=== PATIENT | female | born 1940 | race African-American/Black ===

== ENCOUNTER 2024-09-12 07:58 | Outpatient (AMB) | payer OTHER, SELFPAY ==
[2024-09-12 08:17] VITALS: BP 130/78; PULSE 51; O2SAT 100; BMI 20.7
--- NOTE | 2024-09-12 08:17 | A.OFFVIS_ITS ---
Vital Signs 09/12/24 08:17 Height 5 ft 2 in Weight 113 lb BMI 20.7 BP 130/78 Blood Pressure Location Rt brachial Position Sitting Pulse 51 Pulse Source Pulse Oximeter Pulse Oximetry (%) 100 Oxygen Delivery Method Room Air Intake Visit Reasons: E-VALIDATION CONSULTANT: Migraines/Tremors Intake Note: [facility]ors Allergies morphine Allergy (Severe, Verified 09/12/24 08:19) Nausea and Vomiting oxycodone Allergy (Severe, Verified 09/12/24 08:19) Nausea and Vomiting calcitonin Allergy (Unknown, Verified 09/12/24 08:19) Unknown Medication List - Last Reconciled 09/13/24 by Roselyn Ceballos MD aspirin (Adult Low Dose Aspirin) 81 mg PO DAILY atorvastatin 40 mg PO DAILY ciclopirox 8% topical denosumab (Prolia) 60 mg subcut [id number] fluocinonide 0.05% topical gabapentin 300 mg PO lisinopril 10 mg PO DAILY meclizine 12.5 mg PO BID methimazole 5 mg PO metoprolol succinate ER mg PO DAILY primidone 50 mg PO BID umeclidinium-vilanterol 62.5-25 mcg/actuation (Anoro Ellipta) 1 inh inhalation DAILY HPI Comments Details: 83y/o female comes for further management of migraines, left occipital neuralgia and tremors she was seeing Dr. Mcguire. Migraines- more than 15 years - well controlled. Now they are are 1-2 a year. she goes to a quiet room with no light and rests. Tremors-1-2 years ago and has worsened. The tremors are in her hands- mostly with action, posture, has trouble with writing , eating and other daily activities.she is on primiodne and is not sure it is helping she was also diagnosed with occipital neuralgia on the left and has been treated. DR Shala Simon was treated her with nerve block . ( last injection was 2 years ago and she feels she needs another. In Jul 2024 she was at the ER for headaches - right side facial droop. She was admitted and CVA was ruled out.SHe was at [place]. [facility] Medical History (Updated 09/13/24 @ 12:41 by Roselyn Ceballos MD) Occipital neuralgia Essential and other specified forms of tremor History of flexible sigmoidoscopy Osteoporosis Multinodular goiter Meningioma Spinal stenosis of cervical region Migraine Ulnar nerve neuropathy HTN (hypertension) Enchondroma of humerus PVD (peripheral vascular disease) Hyperlipidemia Chronic left-sided low back pain Disc degeneration, lumbar Subclinical hyperthyroidism Allergic rhinitis Glaucoma Tobacco use Pulmonary nodules COPD (chronic obstructive pulmonary disease) Anemia Head pain Surgical History H/O eye surgery Hx of colonoscopy History of back surgery H/O angioplasty Family History Mother HTN (hypertension) Father CHF (congestive heart failure) Stroke Myocardial infarct Sister HTN (hypertension) Brother Diabetes Son Lymphoma Son Prostate CA Social History Alcohol intake: never Patient Tobacco Use Status: Current everyday Tobacco user Physical Exam Vital Signs: Last Vital Signs Pulse 51 09/12/24 08:17 BP 130/78 09/12/24 08:17 Pulse Ox 100 09/12/24 08:17 Oxygen Delivery Method Room Air 09/12/24 08:17 BMI result Body Mass Index 20.7 Const General: cooperative, healthy appearing and comfortable Nutritional Appearance: average body habitus Orientation/consciousness: patient oriented x3 Eyes Pupils: Equal, round and reactive pupils present Neuro Other: gait- mild antalgic Left occipital region tenderness General: patient oriented x3, tone normal, moves all extremities and no focal motor deficits Cranial nerves: Yes Facial sensation intact/muscles of mastication intact, Yes Equal, round and reactive pupils present, Yes Bilaterally intact EOM present, Yes Nystagmus not present, Yes Normal facial strength present, Yes Midline tongue present and Yes Symmetric palate elevation present Cognition (Neuro): normal cognition Motor exam (neuro): 5/5 motor strength present throughout and Normal motor muscle tone present throughout Deep tendon reflexes (DTR's): Right triceps reflex intensity grade: 1+, Left triceps reflex intensity grade: 1+, Rt Biceps (C5, C6): 1+, Left biceps reflex intensity grade: 1+, Right brachioradialis reflex intensity grade: 1+, Left brachioradialis reflex intensity grade: 1+, Right patellar reflex intensity grade: 1+ and Left patellar reflex intensity grade: 1+ Coordination: [id number] test normal Assessment & Plan Assessment & Plan (1) Essential and other specified forms of tremor: Code(s): G25.0 - Essential tremor; G25.2 - Other specified forms of tremor Category: Medical (2) Occipital neuralgia: Code(s): M54.81 - Occipital neuralgia Category: Medical Qualifiers: Laterality: left Qualified Code(s): M54.81 - Occipital neuralgia Plan Continue primiodne 50mg bid Info on GEORGE tehrapy given as her tremors are poolry controlled with primiodne and a beta kervin. she has no contraindications to upper limb stimulator therapy * pt has no contraindications to external upper limb tremor stimulator therapy * external upper limb tremor stimulator is being prescribed to treat the beneficiary's dominant upper limb * If medically appropriate, tremor exacerbating medications have been reduced or eliminated * at least 2 pharmacological treatment options for management of ET symptoms have been tried and failed or considered and ruled out- primiodne and gabapentin -not sufficient response * external upper limb tremor stimulator therapy is being prescribed as an alternative to invasive and/or permanent surgical treatment options * SEE ATTACHED BF-ADL scale - 58 Schedule for left occipital neurlagia treatment - nerve block with pain management . Patient wants it in [place]. Coding Level of Care Code New Pt Level 4 (38257) Complex EM visit Add On G2211 Diagnoses Essential and other specified forms of tremor G25.0; G25.2 Occipital neuralgia of left side M54.81 Laterality: left
== END 2024-09-12 08:59 | disposition home or self-care (01) ==
LOC: HO.HSMS 07:59
PROVIDERS: PCP Physician Assistant; Visit Provider Psychiatry & Neurology Neurology
DX: G25.0 Essential tremor (principal); G25.2 Other specified forms of tremor; M54.81 Occipital neuralgia
CPT/HCPCS: 99204; G2211

== ENCOUNTER 2024-11-23 10:13 | Outpatient (AMB) | payer OTHER, SELFPAY ==
[2024-11-23 10:22] VITALS: BP 164/71; PULSE 54; RESP 18; O2SAT 98
--- NOTE | 2024-11-23 10:22 | A.OFFVIS_ITS ---
Vital Signs 11/23/24 10:22 Weight 113 lb BP 164/71 H Blood Pressure Location Lt brachial Position Sitting Respiration 18 Pulse 54 Pulse Source Pulse Oximeter Pulse Oximetry (%) 98 Oxygen Delivery Method Room Air Intake Visit Reasons: Occipital neuralgia/nerve block Vascular Technician Required: No Knitted Goods Shaper: Knitted Goods Shaper Present Accompanied by: Agus Hernandez Allergies morphine Allergy (Severe, Verified 11/23/24 10:23) Nausea and Vomiting oxycodone Allergy (Severe, Verified 11/23/24 10:23) Nausea and Vomiting calcitonin Allergy (Unknown, Verified 11/23/24 10:23) Unknown Medication List - Last Reconciled 11/23/24 by Amber Small LPN aspirin (Adult Low Dose Aspirin) 81 mg PO DAILY atorvastatin 40 mg PO DAILY ciclopirox 8% topical denosumab (Prolia) 60 mg subcut [id number] denosumab (Prolia) 60 mg subcut [id number] fluocinonide 0.05% topical gabapentin 300 mg PO lisinopril 10 mg PO DAILY meclizine 12.5 mg PO BID methimazole 5 mg PO metoprolol succinate ER mg PO DAILY primidone 50 mg PO BID umeclidinium-vilanterol 62.5-25 mcg/actuation (Anoro Ellipta) 1 inh inhalation DAILY HPI HPI Occipital neuralgia/nerve block: Details: History of Present Illness The patient is an 83-year-old female presenting with management needs for left occipital neuralgia. The neuralgia was previously managed with left-sided occipital nerve blocks that provided relief. Following her neurologist's senior living, she has encountered challenges accessing treatment, exacerbated by her granddaughter's relocation, leading to her current visit. Prior treatment was effective, and she seeks to continue with nerve blocks as a therapeutic intervention for her pain, which remains localized with no additional neurologic symptoms reported. Pain Description - Onset: Previously managed with nerve blocks; chronic in nature. - Quality: Neuralgic pain localized to the left occipital region. - Location: Left occipital area. - Exacerbating Factors: Chronicity; specific factors not detailed. - Relieving Factors: Prior occipital nerve blocks. - Activities Affected: No specific activities described; challenges in accessing care due to social support changes. Physical Exam Results Pain Management - Affect: Not specifically discussed. - Analgesia: Prior left occipital nerve blocks; effectiveness noted. - Adverse Effects: None mentioned. - Activities of Daily Living: No specific details; logistical challenges due to relocation of social support. - Aberrant Drug Related Behaviors: Not indicated in the conversation. Procedure - Greater and Lesser Occipital Nerve Blocks (Left Side): - The patient provided consent to proceed. - A 25-gauge needle was introduced into the distribution of the greater & lesser occipital nerves. - Bupivacaine 0.5% 3 ml was injected. - The procedure was well tolerated with no blood loss observed. [facility] Medical History (Updated 09/13/24 @ 12:41 by Roselyn Ceballos MD) Occipital neuralgia Essential and other specified forms of tremor History of flexible sigmoidoscopy Osteoporosis Multinodular goiter Meningioma Spinal stenosis of cervical region Migraine Ulnar nerve neuropathy HTN (hypertension) Enchondroma of humerus PVD (peripheral vascular disease) Hyperlipidemia Chronic left-sided low back pain Disc degeneration, lumbar Subclinical hyperthyroidism Allergic rhinitis Glaucoma Tobacco use Pulmonary nodules COPD (chronic obstructive pulmonary disease) Anemia Head pain Surgical History H/O eye surgery Hx of colonoscopy History of back surgery H/O angioplasty Family History Mother HTN (hypertension) Father CHF (congestive heart failure) Stroke Myocardial infarct Sister HTN (hypertension) Brother Diabetes Son Lymphoma Son Prostate CA Social History Alcohol intake: never Patient Tobacco Use Status: Current everyday Tobacco user Physical Exam Vital Signs: Last Vital Signs Pulse 54 11/23/24 10:22 Resp 18 11/23/24 10:22 BP 164/71 H 11/23/24 10:22 Pulse Ox 98 11/23/24 10:22 Oxygen Delivery Method Room Air 11/23/24 10:22 Assessment & Plan Assessment & Plan (1) Occipital neuralgia: Code(s): M54.81 - Occipital neuralgia Category: Medical Qualifiers: Laterality: left Qualified Code(s): M54.81 - Occipital neuralgia Plan Plan - Left occipital nerve block administered with understanding and agreement from the patient for pain management. - Assess pain relief and consider future nerve blocks contingent upon the response and accessibility. - Follow-up instructions provided according to patient mobility and scheduling needs. Patient was informed and verbally consented to the use of an ambient scribe for clinic note documentation during this visit. Discussion Notes During the consultation, I discussed with the patient the capacity to perform a left occipital nerve block to address her neuralgic pain, which she consented to. This procedure has previously provided her with significant relief. The potential for recurring block procedures will be dependent on her response to today's treatment and her mobility constraints. I clarified the benefits, the procedural process, and absence of significant risk factors associated with bupivacaine use. I advised the patient to return for further intervention if needed, dictating the decision based on her pain's recurrence and her logistical capabilities. Patient Instructions - Monitor the site for any unusual symptoms post-procedure. - Contact the clinic for any concerns regarding pain or complications. - Schedule follow-up for additional treatment as needed and based on ability to arrange transport. - Maintain communication with family or caregivers to facilitate future appointments. Coding Level of Care Code Est Pt Level 3 (61335) Diagnoses Occipital neuralgia of left side M54.81 Laterality: left
--- OUTSIDE RECORDS SUMMARY | 2024-11-23 10:53 | XMS_ITS | Clinical Summary ---
Author Organization [facility] Address [address] [place] [address] Care Team Providers Care Strategic Marketing Specialist Name Role Phone Jaylen Sweeney MD Primary Care Provider [phone] Allergies Active Allergy Reactions Criticality Noted Date Comments Morphine GI Intolerance/Nausea/Vomiting Low 02/28/2018 Oxycodone-Acetaminophen GI Intolerance/Nausea/Vomiting Low 02/28/2018 Medications acetaminophen-c odeine (TYLENOL #3) 300-30 MG per tabletIndicatio ns:Critical lower limb ischemia (HCC) Take 1 tablet by mouth every 4 (four) hours as needed for moderate pain. Max Daily Amount: 6 tablets 12 tablet 8 Active aspirin 81 MG chewable tabletIndicatio ns:Critical lower limb ischemia (HCC) Chew 1 tablet (81 mg total) daily. 30 tablet 3 8 Active atorvastatin (LIPITOR) 20 MG tabletIndicatio ns:Critical lower limb ischemia (HCC) Take 1 tablet (20 mg total) by mouth daily. 30 tablet 8 Active metoPROLOL TARTRATE (LOPRESSOR) 25 MG tabletIndicatio ns:Critical lower limb ischemia (HCC) Take 1 tablet (25 mg total) by mouth every 12 (twelve) hours around the clock. 60 tablet 8 Active clopidogrel (PLAVIX) 75 MG tabletIndicatio ns:Critical lower limb ischemia (HCC) Take 1 tablet (75 mg total) by mouth daily. 90 tablet 3 8 Active lisinopril (PRINIVIL,ZeSTR IL) 30 MG tablet Take 30 mg by mouth daily. Active METHIMAZOLE PO Take by mouth. Active calcium carbonate (OS-DILEEP) 600 MG tablet Take 600 mg by mouth every morning with breakfast. Active gabapentin (NEURONTIN) 300 MG capsule Take 300 mg by mouth 3 (three) times a day. Active famotidine (PEPCID) 20 MG tablet Take 20 mg by mouth 2 (two) times a day. Active fluticasone (FloNASE) 50 mcg/spray nasal spray 1 spray into each nostril daily. Active albuterol (PROVENTIL) (0.083%) 2.5 mg/3 mL nebulizer solution Take 1 vial by nebulization 4 times daily (every 6 hours) as needed for wheezing. 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 03/21/2018 S/P peripheral artery angioplasty 03/21/2018 Resolved Problems Problem Noted Date Diagnosed Date Resolved Date Critical lower limb ischemia 02/28/2018 05/22/2019 Social History Tobacco Use Types Packs/Day Years Used Date Smoking Tobacco: Never Assessed Comments Unknown Sex and Gender Information Value Date Recorded Sex Assigned at Not on file Legal Sex Female 1:43 PM EDT Gender Identity Not on file Sexual Orientation Not on file Last Filed Vital Signs Vital Sign Reading Time Taken Comments Blood Pressure 110/80 05/22/2019 1:58 PM EST Pulse 76 06/06/2018 3:42 PM EST Temperature 37.1 ??C (98.8 ??F) 03/06/2018 3:51 PM ED T Respiratory Rate 18 03/06/2018 3:51 PM EDT Oxygen Saturation 99% 03/06/2018 3:51 PM EDT Inhaled Oxygen Concentration - - Weight 54.4 kg (120 lb) 05/22/2019 1:58 PM EST Height 157.5 cm (5' 2 ) 05/22/2019 1:58 PM EST Body Mass Index 21.95 05/22/2019 1:58 PM EST Plan of Treatment Health Maintenance Due Date Last Done Comments DTaP/Tdap/Td Vaccines (1 - Tdap) 1960 Pneumococcal Vaccines 50+ (1 of 1 - PCV) 12/15/1991 Zoster (Shingles) Vaccine (1 of 2) 12/15/1991 DXA Bone Density (Females,Ag es 65 and older) 2006 RSV Vaccine 60 years and old er and Patients (1 - 1-dose 75+ series) 2016 COVID-19 Vaccine (2023-2 5 season) 2024 Influenza Vaccine 01/25/2025 Hepatitis B Vaccines Aged Out No long er eligible based on patient's age to complete this topic Medical Devices Implanted Type Area Warehouse Person Device Identifier Shelf Expiration Date Model / Serial / Lot Stent Vascular 6mm 100mm 125cm Otw Preld Delivery System - [id number] Implanted:Qty: 1 on 02/28/2018 by Todd Jiménez MD at [facility] Stent [employer] [id number] 05/12/2019 [id number] / / [id number] Description:Superficial Femo ral Artery Stent Vascular 6mm 60mm 125cm Drug Elute Otw Delivery System - [id number] Implanted:Qty: 1 on 02/28/2018 by Todd Jiménez MD at [facility] Stent [employer] [id number] 04/07/2019 G384 79 / / [id number] Description:SFA Stent Vascular 6mm 40mm 125cm Drug Elute Otw Delivery System - [id number] Implanted:Qty: 1 on 02/28/2018 by Todd Jiménez MD at [facility] Stent [employer] [id number] 03/21/2019 G384 63 / / [id number] Description:SFA Patch Vascular 9x2cm Xenosure Bvn Pericard Glutaraldehyde - [id number] Implanted:Qty: 1 on 02/28/2018 by Todd Jiménez MD at [facility] Tissue [employer] [id number] 01/21/2023 [id number] / / [id number] Insurance [employer] Advance Directives * Full Code (Latest Code Status on File) Date Activated Date Inactivated Comments 02/28/2018 9:42 PM * Full Code Date Activated Date Inactivated Comments 02/28/2018 4:30 PM 02/28/2018 9:42 PM Care Teams Strategic Marketing Specialist Relationship Specialty Start Date End Date Jaylen Sweeney MD [address] [place] [id number] PCP - General Internal Medicine 02/28/18
== END 2024-11-23 11:09 | disposition home or self-care (01) ==
LOC: HO.PMC 10:14
PROVIDERS: PCP Physician Assistant; Referring Provider Psychiatry & Neurology Neurology; Visit Provider Internal Medicine
DX: M54.81 Occipital neuralgia (principal)
CPT/HCPCS: 64405; 64450; 99203

== ENCOUNTER → 2024-11-23 10:13 | Outpatient (BNVA) | payer OTHER, SELFPAY | PROVIDERS: PCP Physician Assistant; Referring Provider Psychiatry & Neurology Neurology; Visit Provider Internal Medicine | DX: M54.81 Occipital neuralgia (principal) | CPT/HCPCS: 64405; 64450; J0665 ==

== ENCOUNTER 2024-12-18 11:10 | Outpatient (AMB) | payer OTHER, SELFPAY ==
--- NOTE | 2024-12-18 11:11 | A.OFFVIS_ITS ---
Vital Signs 12/18/24 11:12 Height 5 ft 2 in Weight 118 lb BMI 21.6 BP 142/78 H Blood Pressure Location Rt brachial Position Sitting Pulse 56 Pulse Source Pulse Oximeter Intake Visit Reasons: 3m follow up Migraines/Tremors(ok per md) Intake Note: Patient presents for follow up nerve block with pain management done 11/23/24 Allergies morphine Allergy (Severe, Verified 12/18/24 11:20) Nausea and Vomiting oxycodone Allergy (Severe, Verified 12/18/24 11:20) Nausea and Vomiting calcitonin Allergy (Unknown, Verified 12/18/24 11:20) Unknown Medication List - Last Reconciled 12/18/24 by Roselyn Ceballos MD aspirin (Adult Low Dose Aspirin) 81 mg PO DAILY atorvastatin 40 mg PO DAILY ciclopirox 8% topical denosumab (Prolia) 60 mg subcut [id number] denosumab (Prolia) 60 mg subcut [id number] fluocinonide 0.05% topical gabapentin 300 mg PO lisinopril 10 mg PO DAILY meclizine 12.5 mg PO BID methimazole 5 mg PO metoprolol succinate ER mg PO DAILY primidone 50 mg PO BID umeclidinium-vilanterol 62.5-25 mcg/actuation (Anoro Ellipta) 1 inh inhalation DAILY HPI Comments Details: 84y/o female comes for follow up of migraines, left occipital neuralgia and tremors.she had her nerve block 1 month and has not noticed any improvement at all.she alos reports severe neck paina nd stiffness. MRI C spine shows multilevel deg changes she was suggested GEORGE - but she was told that she had to pay 700$ she was seeing Dr. Mcguire. Migraines- more than 15 years - well controlled. Now they are are 1-2 a year. she goes to a quiet room with no light and rests. Tremors-1-2 years ago and has worsened. The tremors are in her hands- mostly with action, posture, has trouble with writing , eating and other daily activities.she is on primidone and is not sure it is helping In Jul 2024 she was at the ER for headaches - right side facial droop. She was admitted and CVA was ruled out.SHe was at [place]. [facility] Medical History Cervical dystonia Occipital neuralgia Essential and other specified forms of tremor History of flexible sigmoidoscopy Osteoporosis Multinodular goiter Meningioma Spinal stenosis of cervical region Migraine Ulnar nerve neuropathy HTN (hypertension) Enchondroma of humerus PVD (peripheral vascular disease) Hyperlipidemia Chronic left-sided low back pain Disc degeneration, lumbar Subclinical hyperthyroidism Allergic rhinitis Glaucoma Tobacco use Pulmonary nodules COPD (chronic obstructive pulmonary disease) Anemia Head pain Surgical History H/O eye surgery Hx of colonoscopy History of back surgery H/O angioplasty Family History Mother HTN (hypertension) Father CHF (congestive heart failure) Stroke Myocardial infarct Sister HTN (hypertension) Brother Diabetes Son Lymphoma Son Prostate CA Social History Alcohol intake: never Patient Tobacco Use Status: Current everyday Tobacco user Physical Exam Vital Signs: Last Vital Signs Pulse 56 12/18/24 11:12 BP 142/78 H 12/18/24 11:12 BMI result Body Mass Index 21.6 Const General: cooperative, healthy appearing and comfortable Nutritional Appearance: average body habitus Orientation/consciousness: patient oriented x3 Eyes Pupils: Equal, round and reactive pupils present Neuro Other: gait- mild antalgic Left occipital region tenderness NECK - tenderness and tightness in the left scalene, splenius, levator muscles with restricted range of motion General: patient oriented x3, tone normal, moves all extremities and no focal motor deficits Cranial nerves: Yes Facial sensation intact/muscles of mastication intact, Yes Equal, round and reactive pupils present, Yes Bilaterally intact EOM present, Yes Nystagmus not present, Yes Normal facial strength present, Yes Midline tongue present and Yes Symmetric palate elevation present Cognition (Neuro): normal cognition Motor exam (neuro): 5/5 motor strength present throughout and Normal motor muscle tone present throughout Coordination: [id number] test normal Assessment & Plan Assessment & Plan (1) Essential and other specified forms of tremor: Code(s): G25.0 - Essential tremor; G25.2 - Other specified forms of tremor Category: Medical (2) Occipital neuralgia: Code(s): M54.81 - Occipital neuralgia Category: Medical Qualifiers: Laterality: left Qualified Code(s): M54.81 - Occipital neuralgia (3) Cervical dystonia: Code(s): G24.3 - Spasmodic torticollis Category: Medical Plan Continue primiodne 50mg bid Will trial on botox for cervical dystonia Coding Level of Care Code Est Pt Level 4 (27455) Complex EM visit Add On G2211 Diagnoses Essential and other specified forms of tremor G25.0; G25.2 Occipital neuralgia of left side M54.81 Laterality: left Cervical dystonia G24.3
[2024-12-18 11:12] VITALS: BP 142/78; PULSE 56; BMI 21.6
--- OUTSIDE RECORDS SUMMARY | 2024-12-18 12:48 | XMS_ITS | Clinical Summary ---
Author Organization [facility] Address [address] [place] [address] Care Team Providers Care Packer Dried Beef Name Role Phone Jaylen Sweeney MD Primary Care Provider [phone] Allergies Active Allergy Reactions Criticality Noted Date [...] Problem Noted Date Diagnosed Date Atherosclerosis of [place] ar moises of extremity with intermittent claudication [...] 76 06/06/2018 3:42 PM EST Temperature 37.1 C (98.8 F) 03/06/2018 3:51 PM EDT Respiratory Rate 18 03/06/2018 3:51 PM EDT [...] this topic Medical Devices Implanted Type Area Airport Representative Device Identifier Shelf Expiration Date Model / Serial / Lot Stent Vascular 6mm 100mm 125cm Otw Preld Delivery System - [id number] Implanted:Qty: 1 on 02/28/2018 by Todd Jiménez MD at [facility] Stent [employer] [id number] 05/12/2019 G384 81 / / [id number] Description:Superficial Femo ral Artery Stent Vascular 6mm 60mm 125cm Drug Elute Otw Delivery System - [id number] Implanted:Qty: 1 on 02/28/2018 by Todd Jiménez MD at [facility] Stent [employer] [id number] 04/07/2019 G384 79 / / [id number] Description:SFA Stent Vascular 6mm 40mm 125cm Drug Elute Otw Delivery System - [id number] Implanted:Qty: 1 on 02/28/2018 by Todd Jiménez MD at [facility] Stent [employer] [id number] 03/21/2019 G384 63 / / [id number] Description:SFA Patch Vascular 9x2cm Xenosure Bvn Pericard Glutaraldehyde - [id number] Implanted:Qty: 1 on 02/28/2018 by Todd Jiménez MD at [facility] Tissue [employer] [id number] 01/21/2023 E2P9 / / [id number] Insurance [facility] [place] [id number] [employer] Advance Directives * Full Code (Latest Code Status on File) Date Activated Date Inactivated Comments 02/28/2018 9:42 PM * Full Code Date Activated Date Inactivated Comments 02/28/2018 4:30 PM 02/28/2018 9:42 PM Care Teams Packer Dried Beef Relationship Specialty Start Date End Date Jaylen Sweeney MD [address] [place] [id number] PCP - General Internal Medicine 02/28/18
== END 2024-12-18 11:41 | disposition home or self-care (01) ==
LOC: HO.HSMS 11:10
PROVIDERS: PCP Physician Assistant; Visit Provider Psychiatry & Neurology Neurology
DX: G25.0 Essential tremor (principal); G25.2 Other specified forms of tremor; M54.81 Occipital neuralgia; G24.3 Spasmodic torticollis
CPT/HCPCS: 99214; G2211

== ENCOUNTER 2025-01-15 07:40 | Outpatient (AMB) | payer OTHER, SELFPAY ==
--- NOTE | 2025-01-15 07:42 | A.OFFVIS_ITS ---
Vital Signs 01/15/25 07:44 Height 5 ft 2 in Weight 109 lb 8 oz BMI 20.0 BP 138/68 Blood Pressure Location Lt brachial Position Sitting Pulse 45 L Pulse Source Pulse Oximeter Pulse Oximetry (%) 98 Oxygen Delivery Method Room Air Intake Visit Reasons: botox b&b Intake Note: Patient presents Botox injection Allergies morphine Allergy (Severe, Verified 01/15/25 07:46) Nausea and Vomiting oxycodone Allergy (Severe, Verified 01/15/25 07:46) Nausea and Vomiting calcitonin Allergy (Unknown, Verified 01/15/25 07:46) Unknown Medication List - Last Reconciled 01/15/25 by Roselyn Ceballos MD aspirin (Adult Low Dose Aspirin) 81 mg PO DAILY atorvastatin 40 mg PO DAILY ciclopirox 8% topical denosumab (Prolia) 60 mg subcut [id number] denosumab (Prolia) 60 mg subcut [id number] fluocinonide 0.05% topical gabapentin 300 mg PO lisinopril 10 mg PO DAILY meclizine 12.5 mg PO BID methimazole 5 mg PO metoprolol succinate ER mg PO DAILY primidone 50 mg PO BID umeclidinium-vilanterol 62.5-25 mcg/actuation (Anoro Ellipta) 1 inh inhalation DAILY HPI Comments Details: 84 comes for treatment of his cervical dystonia ? Side effects including spread of toxin effect, dysphagia, breathing difficulties , bronchitis etc was discussed in detail and the patient agreed to the procedure.An informed consent was obtained ??? Botulinum toxin type A 100units X 1 -was diluted with 2 cc of normal saline at a concentration of 25 units in 0.5cc saline. Lot number [id number] expiration 02/2027 ??? Muscles injected ??? jill Splenius - 25 units each ??? bilat levator 25 units each ? Total used 100 units [facility] Medical History Cervical dystonia Occipital neuralgia Essential and other specified forms of tremor History of flexible sigmoidoscopy Osteoporosis Multinodular goiter Meningioma Spinal stenosis of cervical region Migraine Ulnar nerve neuropathy HTN (hypertension) Enchondroma of humerus PVD (peripheral vascular disease) Hyperlipidemia Chronic left-sided low back pain Disc degeneration, lumbar Subclinical hyperthyroidism Allergic rhinitis Glaucoma Tobacco use Pulmonary nodules COPD (chronic obstructive pulmonary disease) Anemia Head pain Surgical History H/O eye surgery Hx of colonoscopy History of back surgery H/O angioplasty Family History Mother HTN (hypertension) Father CHF (congestive heart failure) Stroke Myocardial infarct Sister HTN (hypertension) Brother Diabetes Son Lymphoma Son Prostate CA Social History Alcohol intake: never Patient Tobacco Use Status: Current everyday Tobacco user Physical Exam Vital Signs: Last Vital Signs Pulse 45 L 01/15/25 07:44 BP 138/68 01/15/25 07:44 Pulse Ox 98 01/15/25 07:44 Oxygen Delivery Method Room Air 01/15/25 07:44 BMI result Body Mass Index 20.0 Const General: cooperative, healthy appearing and comfortable Nutritional Appearance: average body habitus Orientation/consciousness: patient oriented x3 Neuro Other: gait- mild antalgic Left occipital region tenderness NECK - tenderness and tightness in the left scalene, splenius, levator muscles with restricted range of motion General: patient oriented x3, tone normal, moves all extremities and no focal motor deficits Coordination: [id number] test normal Office Procedures Botulinum toxin Injection 57869 - Dystonia Procedure code (CPT) selection complete Office Meds onabotulinumtoxinA 100 unit solution for injection Performing Provider: Roselyn Ceballos MD Performing Location: [facility] Administered by: Roselyn Ceballos MD on 01/15/25 08:57 Dose Route Admin Location Dispensed Lot Number Expiration Date [facility] Economic Specialist 100 unit IM 100 units [id number] [employer] Total Dispensed Waste 100 units 0 % Comments: see hpi Assessment & Plan Assessment & Plan (1) Cervical dystonia: Code(s): G24.3 - Spasmodic torticollis Category: Medical Plan Patient tolerated the procedure well send she will call with any side effects. Orders: Orders AMB Botulinum toxin Injection Today G24.3 - Spasmodic torticollis Coding Level of Care Code Est Pt Level 1 (87946) Diagnoses Cervical dystonia G24.3 CPT Codes Botox Injection - Botox 4: 19887 - Dystonia ([id number])
[2025-01-15 07:44] VITALS: BP 138/68; PULSE 45; O2SAT 98
== END 2025-01-15 08:16 | disposition home or self-care (01) ==
LOC: HO.HSMS 07:41
PROVIDERS: PCP Physician Assistant; Visit Provider Psychiatry & Neurology Neurology
DX: G24.3 Spasmodic torticollis (principal)
CPT/HCPCS: 64616

== ENCOUNTER → 2025-01-15 07:40 | Outpatient (BNVA) | payer OTHER, SELFPAY | PROVIDERS: PCP Physician Assistant; Visit Provider Psychiatry & Neurology Neurology | DX: G24.3 Spasmodic torticollis (principal) | CPT/HCPCS: 64616; 99211; J0585 ==

== ENCOUNTER 2025-04-23 09:43 | Outpatient (AMB) | payer OTHER, SELFPAY ==
--- OUTSIDE RECORDS SUMMARY | 2025-04-18 14:15 | XMS_ITS | Encounter Summary ---
Author Organization [facility] Address [address] [place] [address] Care Team Providers Care Waterproof Bag Sewer Name Role Phone Alexia Ceron Primary Care Provider + Reason for Visit * Reason Comments Hypertension Hyperlipidemia Hyperthyroidism COPD Osteoporosis Headache Encounter Details Date Type Department Care Team (Late st Contact Info) Description 04/18/2025 2:15 PM EDT Office Visit Internal Medicine - [place] [address] [place] [address] Alexia Ceron PA [address] [place] [address] Primary hypertension (Primary Dx); Pure hypercholesterolemia; Prediabetes; Hyperthyroidism; Age-related osteoporosis without current pathological fracture; Migraine without status migrainosus, not intractable, unspecified migraine type; Occipital neuralgia of left side Social History Tobacco Use Types Packs/Day Years Used Date Smoking Tobacco: Every Day Cigarettes 0.3 62.8 Started: 06/27/1961 Smokeless Tobacco: Never Alcohol Use Standard Drinks/Week Comments No 0 (1 standard drink = 0.6 oz pur e alcohol) Interpersonal Safety Answer Date Record ed Physical Abuse Unrecognized value 08/02/2024 Verbal Abuse Unrecognized value 08/02/2024 Comments No Sex and Gender Information Value Date Recorded Sex Assigned at Female 08/02/2024 1:17 PM EST Legal Sex Female 8:47 PM EST Gender Identity Female 08/02/2024 1:17 PM EST Sexual Orientation Straight 08/02/2024 1: 17 PM EST documented as of this encounter Last Filed Vital Signs Vital Sign Reading Time Taken Comments Blood Pressure 146/76 04/18/2025 2:29 PM EDT Pulse 52 04/18/2025 2:29 PM EDT Temperature 36.6 C (97.8 F) 04/18/2025 2:29 PM EDT Respiratory Rate - - Oxygen Saturation 98% 04/18/2025 2:29 PM EDT Inhaled Oxygen Concentration - - Weight 49.9 kg (110 lb) 04/18/2025 2:29 PM EDT Height 162.6 cm (5' 4 ) 04/18/2025 2:29 PM EDT Body Mass Index 18.88 04/18/2025 2:29 PM EDT documented in this encounter Progress Notes * JORGE Canela - 04/18/2025 2:15 PM EDT CHIEF COMPLAINT: Hypertension, Hyperlipidemia, Hyperthyroidism, COPD, Osteoporosis, and Headache IDENTIFIER: Elizabeth Giordano is a 84 y.o. old female. HPI: Follow-up hypertension, hyperlipidemia, hyperthyroidism, COPD, osteoporosis and headaches. She was last seen by me for follow-up 11/13/2024. Last labs (BMP, calcium, albumin) were done per Endo 04/09/2025. States she is compliant with her medications and denies any side effects. Hypertension is treated with metoprolol ER 25 mg daily and lisinopril 10 mg daily, but elevated in the office today 146/76. Says she does have a blood pressure machine at home, but has not been checking. Admits she is under stress as her 's health is declining and having issues with her grandson. She also recently needed to rasheed with Medicare to get her Prolia approved. Hyperlipidemia stable on atorvastatin 40 mg daily with last LDL 45, triglycerides 45, HDL 76 on 12/27/2024. Prediabetic last hemoglobin A1c 5.8 on 12/27/2024. Hyperthyroidism is stable on methimazole 5 mg half tab daily with last TSH 1.68 on 11/13/2024. COPD is stable on Anoro 1 puff daily albuterol as needed, still smoking 1 to 2 cigarettes/day and not ready to quit. Osteoporosis treated with Prolia injections every 6 months per endocrinology, last bone density 04/28/2023. Migraine headaches and left occipital neuralgia are stable on gabapentin 300 mg twice daily followed by neurology, but also follows with pain management for injections. Tremors of both hands treated with primidone 50 mg daily.Peripheral arterial disease was treated with Plavix 75 mg daily, but this was discontinued last year due to hematoma in her arm, she has follow-up with both vascular and cardiology. Other Providers: Linen Folder/interventional Cardiology Dr. Driver - ALEJANDRA, also see's Dr. Jiménez at [facility] Pen And Pencil Repairer through [facility] [place], Hyperthyroidism, osteoporosis Thoracic Surgeon Dr. Tian - pulm nodules Genetic Scientist Dr. Lee - bilateral cataract surgery, glaucoma right Neurologist Dr. Ceballos previously Dr. Mcguire - Migraines, left occipital neuralgia, tremors Pain management in [place] - left occipital neuralgia Fire Extinguisher Repairer Inspector Dr. Holland - COPD, pulmonary nodules Vascular Dr. 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 ([facility] V24, [facility] V28) 12/05/2018 COPD (chronic obstructive pulmonary disease) with emphysema ([facility] V24, [facility] V28) 11/02/2017 Pulmonary nodules 11/02/2017 Tobacco use 11/02/2017 Glaucoma 11/01/2017 Allergic rhinitis 11/01/2017 Subclinical hyperthyroidism 10/13/2017 Disc degeneration, lumbar 07/27/2017 Chronic left-sided low back pain with left-sided sciatica 03/04/2017 Hyperlipidemia 05/16/2015 PVD (peripheral vascular disease) ([facility] V24) 08/23/2014 Enchondroma of humerus, right 12/31/2011 Ulnar nerve neuropathy 09/10/2011 Hypertension 09/10/2011 Migraine 04/03/2010 Spinal stenosis of cervical region 03/26/2009 Meningioma ([facility] V24, [facility] V28) 08/22/2007 Multinodular goiter 02/08/2006 Osteoporosis 02/08/2006 Surgical History[1] SOCIAL HISTORY: Social History Tobacco Use Smoking status: Every Day Current packs/day: 0.25 Average packs/day: 0.3 packs/day for 62.8 years (15.7 ttl pk-yrs) Types: Cigarettes Start date: 06/27/1962 Smokeless tobacco: Never Substance Use Topics Alcohol use: No FAMILY HISTORY: Family History[2] MEDICATIONS DISCONTINUED/REORDERED: There are no discontinued medications. ACTIVE MEDICATIONS: Medications Taking[3] ALLERGIES: Allergies[4] PHYSICAL EXAM: Visit Vitals BP (!) 146/76 Pulse 52 Temp 36.6 ??C (97.8 ??F) (Temporal) Ht 1.626 m (64 ) Wt 49.9 kg (110 lb) SpO2 98% BMI 18.88 kg/m?? OB Status Postmenopausal Smoking Status Every Day BSA 1.52 m?? APPEARANCE: Alert and in no acute distress EYES: Conjunctiva and sclera normal. HEART: RRR LUNG: clear to auscultation bilaterally EXTREMITIES: No edema NEURO: Awake, alert and oriented x 3 SKIN: Skin color normal. Warm and dry. LABS: Appointment on 04/09/2025 Component Date Value Ref Range Status Sodium 04/09/2025 138 133 - 145 mmol/L Final Potassium 04/09/2025 4.4 3.5 - 5.5 mmol/L Final Chloride 04/09/2025 103 96 - 110 mmol/L Final CO2 04/09/2025 30 21 - 32 mmol/L Final Anion Gap 04/09/2025 5 3 - 11 Final Glucose 04/09/2025 95 70 - 100 mg/dL Final BUN 04/09/2025 15 5 - 25 mg/dL Final Creatinine 04/09/2025 0.92 0.50 - 1.10 mg/dL Final eGFR 04/09/2025 62 >=60 mL/min/1.73m2 Final Calculation based on the Chronic Kidney Disease Epidemiology Collaboration (CKD- EPI) equation refitwithout adjustment for race. BUN/Creatinine Ratio 04/09/2025 16.3 Final Calcium 04/09/2025 9.8 8.5 - 10.5 mg/dL Final Albumin 04/09/2025 3.6 3.2 - 5.0 g/dL Final Calcium Ionized 04/09/2025 5.3 4.6 - 5.4 mg/dL Final Test performed at [facility], [address], [place] [address] Filomena Rosa MD, PhD - Supervisor [employer] on 04/04/2025 Component Date Value Ref Range Status Creatinine 04/04/2025 0.96 0.50 - 1.10 mg/dL Final eGFR 04/04/2025 59 (L) >=60 mL/min/1.73m2 Final Calculation based on the Chronic Kidney Disease Epidemiology Collaboration (CKD- EPI) equation refitwithout adjustment for race. Calcium Ionized 04/04/2025 6.5 (HH) 4.6 - 5.4 mg/dL Final Test performed at [facility], [address], [place] [address] Filomena Rosa MD, PhD - Supervisor Chemical Calcium 04/04/2025 10.3 8.5 - 10.5 mg/dL Final Albumin 04/04/2025 4.1 3.2 - 5.0 g/dL Final Appointment on 11/13/2024 Component Date Value Ref Range Status TSH 11/13/2024 1.68 0.40 - 4.00 mcIU/mL Final Medication and lab orders: No orders of the defined types were placed in this encounter. Other orders: None IMAGING: IMPRESSION: 1. Primary hypertension 2. Pure hypercholesterolemia 3. Prediabetes 4. Hyperthyroidism 5. Age-related osteoporosis without current pathological fracture 6. Migraine without status migrainosus, not intractable, unspecified migraine type 7. Occipital neuralgia of left side PLAN: 1. Hypertension. Suboptimal in the office. Continue current medications (see HPI) and advised to monitor blood pressure at home and call if running greater than 140/90. 2. Hyperlipidemia. Stable. Reviewed most recent lipids. Continue atorvastatin 40 mg daily along with diet and exercise. 3. Prediabetes. Reviewed most recent hemoglobin A1c. 4. Hyperthyroidism. Stable. Reviewed most recent TSH. Continue with methimazole 2.5 mg daily and Endo follow-up. 5. Osteoporosis. On Prolia per Endo. 6. Migraine headaches and left occipital neuralgia. Stable. Continue current medications (see HPI) and follow-up with specialist as scheduled. Follow-up 4 months Medicare wellness. Call sooner if needed. JORGE Canela on 04/18/2025 at 2:38 PM EDT [1] Past Surgical History: Procedure Laterality Date ANGIOPLASTY Left 11/2018 PROCEDURE: HISTORICAL ANGIOPLASTY BACK SURGERY PROCEDURE: HISTORICAL BACK SURGERY COLONOSCOPY 07/11/07 PROCEDURE: HISTORICAL COLONOSCOPY; COMMENT: hemorrhoids; repeat in ten years EYE SURGERY Bilateral PROCEDURE: HISTORICAL EYE SURGERY; COMMENT: cataracts Dr. Lee FLEXIBLE SIGMOIDOSCOPY 07/29 PROCEDURE: SC SIGMOIDOSCOPY FLX DX W/COLLJ SPEC BR/WA IF PFRMD; COMMENT: neg OTHER SURGICAL HISTORY 08/04 PROCEDURE: OUTSIDE MRI/MRA; COMMENT: [facility]; Right frontal meningioma; MRA neg OTHER SURGICAL HISTORY PROCEDURE: SC LIG/TRNSXJ FLP TUBE ABDL/VAG APPR UNI/BI OTHER SURGICAL HISTORY Bilateral PROCEDURE: TRANSCATH STENT EACH ADDN VESSL,OPEN; COMMENT: legs [2] Family History Problem Relation Name Age of Onset Other cancer Other mat Great Aunts Hypertension Mother Other (Other: Diabetes/Parkinson's) Mother Other (Other: CHF/OR/STROKE) Father Diabetes Aunt pat Hypertension Sister Other (Other: Hypertension/Diabetes) Brother Other (Other: Multiple Sclerosis) Sister Diabetes Brother Prostate cancer Son Other cancer Son Lymphoma Breast cancer Neg Hx Colon cancer Neg Hx Ovarian cancer Neg Hx [3] No outpatient medications have been marked as taking for the 04/18/25 encounter (Office Visit) withJORGE Canela. [4] Allergies Allergen Reactions Calcitonin Doesn't remember what reaction she had Morphine Nausea And Vomiting Oxycodone-Acetaminophen Nausea And Vomiting documented in this encounter Plan of Treatment Upcoming Encounters Date Type Department Care Team (Late st Contact Info) Description 08/19/2025 2:00 PM EST Office Visit Internal Medicine - [address] [address] Alexia Ceron PA [address] [place] [address] 09/11/2025 2:15 PM EDT Office Visit Pulmonology - [address] [address] Lorrie Holland MD [address] [place] [address] 10/18/2025 1:30 PM EDT Appointment [facility] [address] [phone] documented as of this encounter Visit Diagnoses Diagnosis Primary hypertension- Primary Unspecified essential hypertension Pure hypercholesterolemia Prediabetes Other abnormal glucose Hyperthyroidism Thyrotoxicosis without mention of goiter or other cause, without mention of thyrotoxic crisis or storm Age-related osteoporosis without current pathological fracture Migraine without status migrainosus, not intractable, unspecified migraine type Occipital neuralgia of left side documented in this encounter Care Teams Waterproof Bag Sewer Relationship Specialty Start Date End Date Alexia Ceron PA [address] [facility] [address] [place] [address] PCP - General Internal Medicine 05/29/18 documented as of this encounter
--- OUTSIDE RECORDS SUMMARY | 2025-04-19 13:22 | XMS_ITS | Encounter Summary ---
Author Organization [facility] Address [address] [place] [address] Care Team Providers Care Rotary Drill Operator Helper Name Role Phone Alexia Ceron Primary Care Provider + Reason for Visit * Episode Based Medications (Routine) - Authorized Specialty Diagnoses / Procedures Referred By Contac t Referred To Contact Diagnoses Age-related osteoporosis without current pathological fracture Masha Ames MD [facility] [place] [address] Phone: tel: fax: [address] [address] Phone: tel: fax: Referral ID Status Reason Start Date Expiration Date V isits Requested Visits Authorized [id number] Authorized 03/22/2025 03/22/2026 1 10 Encounter Details Date Type Department Care Team (Latest Contact Info) Description 04/19/2025 1:22 PM EDT - 04/19/2025 11:59 PM EDT Hospital Encounter [address] [address] Age-related osteoporosis without current pathological fracture (Primary Dx) Discharge Disposition: Home or Self Care Social History Tobacco Use Types Packs/Day Years [...] Sign Reading Time Taken Comments Blood Pressure 146/74 04/19/2025 1:57 PM EDT Pulse 50 04/19/2025 1:32 PM EDT Temperature 36.6 C (97.8 F) 04/19/2025 1:32 PM EDT Respiratory Rate - - Oxygen Saturation 100% 04/19/2025 1:32 PM EDT Inhaled Oxygen Concentration - - Weight - - Height - - Body Mass Index - - documented in this encounter Medications at Time of Discharge albuterol HFA (PROAIR HFA ; PROVENTIL HFA ; VENTOLIN HFA) 90 mcg/actuation inhaler Inhale 2 puffs by mouth every 6 (six) hours if needed for wheezing or shortness of breath. 12/07/2022 aspirin 81 mg EC tablet Take 1 tablet (81 mg total) by mouth daily. atorvastatin (LIPITOR) 40 mg tablet TAKE 1 TABLET BY MOUTH DAILY 90 tablet 3 10/02/2024 calcium carbonate-vit D3-min 600 mg-10 mcg (400 unit) tablet Take 1 tablet by mouth 2 (two) times a day. ciclopirox (PENLAC) 8 % solution APPLY 1 APPLICATION TWICE DAILY TO TOENAILS AND FINGERNAILS 10/20/2024 dorzolamide (TRUSOPT) 2 % ophthalmic solution 05/09/2024 fluocinonide (LIDEX) 0.05 % topical solution APPLY TOPICALLY TO THE AFFECTED AREA AT BEDTIME 10/01/2024 gabapentin (NEURONTIN) 300 mg capsule TAKE 1 CAPSULE BY MOUTH TWICE DAILY 180 capsule 3 05/23/2024 inhalat.spacing dev,large mask spacer Use with inhaler regularly 09/26/2014 latanoprost 0.005 % drops, emulsion Administer 1 drop into affected eye(s). 08/17/2019 lisinopriL (PRINIVIL,ZESTRI L) 10 mg tablet TAKE 1 TABLET BY MOUTH DAILY 90 tablet 3 06/04/2024 meclizine (ANTIVERT) 12.5 mg tablet Take 1 tablet (12.5 mg total) by mouth 3 times daily as needed. 11/25/2023 methIMAzole (TAPAZOLE) 5 mg tablet TAKE ONE-HALF TABLET BY MOUTH DAILY 45 tablet 3 06/05/2024 metoprolol succinate (TOPROL-XL) 25 mg 24 hr tablet TAKE 1 TABLET BY MOUTH DAILY 90 tablet 3 09/03/2024 primidone (MYSOLINE) 50 mg tablet Take 1 tablet (50 mg total) by mouth at bedtime. 01/13/2024 umeclidinium-justina anteroL (Anoro Ellipta) 62.5-25 mcg/actuation inhaler Inhale 1 puff by mouth 1 (one) time each day. documented as of this encounter Discharge Disposition Disposition Code Departure Means Destination Home or Self Care documented in this encounter Progress Notes * Ludy Bennett RN - 04/19/2025 1:30 PM EDT Patient arrives ambulatory for prolia. Patient states she got prolia in the past and her doctors office but due to insurance issues, she is about 1 month late and has to get her injections with us now. Patient arrives crying stating I didn't think this place would be so bright and everyone is so kind patient extremely sweet and thankful. BP was elevated upon arrival but patient was tearful. Patient relaxed and repeat bp taken manually and much improved. Patient denies any issues with prolia in the past or any side effects. Patient denies any upcoming or recent dental work. Injection given in left upper arm without incident. Patient give next appointment for 6 months. Sheis aware that she needs labs prior and states she will get it done. Number provided and patient left stable and ambulatory, instructed to call with any questions or concerns. documented in this encounter Plan of Treatment Upcoming Encounters Date Type Department Care Team ([facility] st Contact Info) Description 08/19/2025 2:00 PM EST Office Visit Internal Medicine - [address] [phone] Alexia Ceron, PA [address] [place] [address] 09/11/2025 2:15 PM EDT Office Visit Pulmonology - [place] [address] [phone] Lorrie Holland MD [address] [place] [address] 10/18/2025 1:30 PM EDT Appointment [facility] [address] [facility] [address] [place] [phone] documented as of this encounter Visit Diagnoses Diagnosis Age-related osteoporosis without current pathological fracture- Primary documented in this encounter Administered Medications Inactive Administered Medications - up to 3 most recent administrations Medication Order MAR Action Action Date Dose Rate Site denosumab (PROLIA) syringe 60 mg 60 mg, subcutaneous, Once, On Tue04/19/25 at 1345, For 1 dose, Allow product to come to room temperature prior to administration; do not allow to get warm. Protect from light. Do not shake. Inject subcutaneously in the upper arm, abdomen or thigh.Indications:Age-rela alley osteoporosis without current pathological fracture Given 04/19/2025 1:58 PM EDT 60 mg Left Upper Arm (Back) documented in this encounter Orders Medications Ordered That Grant ht Not Have Been Administered Count Last Ordered Date First Ordered Date denosumab (PROLIA) syringe 60 mg 1 04/19/20 Nursing Count Last Ordered Date First Orde red Date ONC NURSING COMMUNICATION 1 04/19/2025 ONC NURSING COMMUNICATION 5 1 04/19/2025 ONC PROVIDER COMMUNICATION 1 04/19/2025 TREATMENT CONDITIONS 1 04/19/2025 documented in this encounter Care Teams Rotary Drill Operator Helper Relationship Specialty Start Date End Date Alexia Ceron PA [address] [address] PCP - General Internal Medicine 05/29/18 documented as of this encounter
--- NOTE | 2025-04-23 09:47 | MHC.OFFVIS ---
Vital Signs 04/23/25 09:48 Height 5 ft 2 in Weight 110 lb 6 oz BMI 20.2 BP 148/88 H Blood Pressure Location Rt brachial Position Sitting Pulse 49 L Pulse Source Pulse Oximeter Pulse Oximetry (%) 99 Oxygen Delivery Method Room Air Intake Visit Reasons: Botox Intake Note: Botox 100 Utilization Review Coordinator Required: No Accompanied by: Self / Same As Patient Allergies morphine Allergy (Severe, Verified 04/23/25 09:48) Nausea and Vomiting oxycodone Allergy (Severe, Verified 04/23/25 09:48) Nausea and Vomiting calcitonin Allergy (Unknown, Verified 04/23/25 09:48) Unknown HPI Comments Details: 84 y/o female comes for treatment of hercervical dystonia ? Side effects including spread of toxin effect, dysphagia, breathing difficulties , bronchitis etc was discussed in detail and the patient agreed to the procedure.An informed consent was obtained ??? Botulinum toxin type A 100units X 1 -was diluted with 2 cc of normal saline at a concentration of 25 units in 0.5cc saline. Lot number [id number] expiration 04/2027 ??? Muscles injected ??? jill Splenius - 25 units each ??? bilat levator 25 units each ? Total used 100 units PFSH Medical History Cervical dystonia Occipital neuralgia Essential and other specified forms of tremor History of flexible sigmoidoscopy Osteoporosis Multinodular goiter Meningioma Spinal stenosis of cervical region Migraine Ulnar nerve neuropathy HTN (hypertension) Enchondroma of humerus PVD (peripheral vascular disease) Hyperlipidemia Chronic left-sided low back pain Disc degeneration, lumbar Subclinical hyperthyroidism Allergic rhinitis Glaucoma Tobacco use Pulmonary nodules COPD (chronic obstructive pulmonary disease) Anemia Head pain Surgical History H/O eye surgery Hx of colonoscopy History of back surgery H/O angioplasty Family History Mother HTN (hypertension) Father CHF (congestive heart failure) Stroke Myocardial infarct Sister HTN (hypertension) Brother Diabetes Son Lymphoma Son Prostate CA Social History Alcohol intake: never Patient Tobacco Use Status: Current everyday Tobacco user Physical Exam Vital Signs: Last Vital Signs Pulse 49 L 04/23/25 09:48 BP 148/88 H 04/23/25 09:48 Pulse Ox 99 04/23/25 09:48 Oxygen Delivery Method Room Air 04/23/25 09:48 BMI result Body Mass Index 20.2 Const General: cooperative, healthy appearing and comfortable Nutritional Appearance: average body habitus Orientation/consciousness: patient oriented x3 Neuro Other: gait- mild antalgic Left occipital region tenderness NECK - tenderness and tightness in the left scalene, splenius, levator muscles with restricted range of motion General: patient oriented x3, tone normal, moves all extremities and no focal motor deficits Coordination: [id number] test normal Office Procedures Botulinum toxin Injection 09880 - Dystonia Procedure code (CPT) selection complete Office Meds onabotulinumtoxinA 100 unit solution for injection Performing Provider: Roselyn Ceballos MD Performing Location: [facility] Administered by: Roselyn Ceballos MD on 04/23/25 10:27 Dose Route Admin Location Dispensed Lot Number Expiration Date [facility] Mix Crusher Operator 100 unit IM 100 units [id number] ALLERGAN/BOTOX Total Dispensed Waste 100 units 0 % Comments: see HPI Assessment & Plan Assessment & Plan (1) Cervical dystonia: Code(s): G24.3 - Spasmodic torticollis Category: Medical Plan Patient tolerated the procedure well send she will call with any side effects. Orders: Orders AMB Botulinum toxin Injection Today G24.3 - Spasmodic torticollis Referrals Pain Management Referral M54.81 - Occipital neuralgia Medications: Changed From primidone 50 mg PO BID 180 tabs 5RF To primidone 50 mg PO TID 270 tabs 5RF Coding Level of Care Code Est Pt Level 1 (56538) Diagnoses Cervical dystonia G24.3 CPT Codes Botox Injection - Botox 4: 96778 - Dystonia ([id number])
[2025-04-23 09:48] VITALS: BP 148/88; PULSE 49; O2SAT 99; BMI 20.2
--- OUTSIDE RECORDS SUMMARY | 2025-04-23 11:18 | XMS_ITS | Encounter Summary ---
Author Organization [facility] Address [address] [place] [address] Care Team Providers Care Emergency Veterinary Assistant Name Role Phone Alexia Ceron Primary Care Provider + Reason for Visit * Reason Onset Date Comments Provider call back 04/09/2025 Encounter Details Date Type Department Care Team (Late st Contact Info) Description 04/09/2025 Telephone Endocrinology - [place] [address] [place], [place] [phone] Jud Peñaloza PA [address] [place] [address] Social History Tobacco Use Types Packs/Day Years [...] PM EST documented as of this encounter Progress Notes * Nichole Quan RN - 04/09/2025 1:20 PM EDT Called Paige - no answer, VM left with direct number given * Domitila Mojica - 04/09/2025 11:47 AM EDT Endocrine Call Primary endocrine provider: Jud Peñaloza PA-C Is the endocrine provider in the office toady?: yes Who is calling? Paige If not the patient or parent/guardian please check for authorization to share/verbal release. Why is the person calling? Calls regarding Prolia or recast orders, status on medication, appointments. Please forward to endocrine nurse pool (p [phone]). Paige from [facility] calling concerning pt prolia injection, she would like to make sure that everything is billed correctly. She would like a call back at [phone]- she is in office until 1:30 today and back tomorrow at 8:30 documented in this encounter Plan of Treatment Upcoming Encounters Date Type Department Care Team (Late st Contact Info) Description 08/19/2025 2:00 PM EST Office Visit Internal Medicine - [place] [address] [phone] Alexia Ceron PA [address] [place] [address] 09/11/2025 2:15 PM EDT Office Visit Pulmonology - [place] [address] [phone] Lorrie Holland MD [address] [place] [address] 10/18/2025 1:30 PM EDT Appointment [facility] [address] [phone] documented as of this encounter Visit Diagnoses Not on filedocumented in this encounter Care Teams Emergency Veterinary Assistant Relationship Specialty Start Date End Date Alexia Ceron PA [address] [address] PCP - General Internal Medicine 05/29/18 documented as of this encounter
--- OUTSIDE RECORDS SUMMARY | 2025-04-23 11:18 | XMS_ITS | Encounter Summary ---
Author Organization [facility] Address [address] [place] [address] Care Team Providers Care Street Light Lamp Cleaner Name Role Phone Alexia Ceron Primary Care Provider + Encounter Details Date Type Department Care Team ([facility] Contact Info) Description 04/05/2025 Results Follow-Up Endocrinology - [address] [phone] Cyndie Gaines PA [address] [place] [address] Social History Tobacco Use Types Packs/Day Years [...] PM EST documented as of this encounter Plan of Treatment Upcoming Encounters Date Type Department Care Team (Late Contact Info) Description 08/19/2025 2:00 PM EST Office Visit Internal Medicine - [place] [address] [place] [address] Alexia Ceron PA [address] [place] [address] 09/11/2025 2:15 PM EDT Office Visit Pulmonology - [place] [address] [phone] Lorrie Holland MD [address] [place] [address] 10/18/2025 1:30 PM EDT Appointment [facility] [address] [facility] [address] [place] [phone] documented as of this encounter Visit Diagnoses Diagnosis Age-related osteoporosis without current pathological fracture- Primary Vitamin D deficiency documented in this encounter Care Teams Street Light Lamp Cleaner Relationship Specialty Start Date End Date Alexia Ceron PA [address] [address] PCP - General Internal Medicine 05/29/18 documented as of this encounter
--- OUTSIDE RECORDS SUMMARY | 2025-04-23 11:18 | XMS_ITS | Encounter Summary ---
Author Organization [facility] Address [address] [place] [address] Care Team Providers Care Senior Portfolio Manager Name Role Phone Alexia Ceron Primary Care Provider + Encounter Details Date Type Department Care Team (Late st Contact Info) Description 04/16/2025 Telephone [facility] [place] [address] [place] [phone] Nichole Quan RN Social History Tobacco Use Types Packs/Day Years [...] Progress Notes * Nichole Quan RN - 04/16/2025 3:33 PM EDT Spoke with patient, she spoke with [facility] and they are allowing her to go [facility] and do buy and bill. * JORGE Lara - 04/16/2025 2:28 PM EDT Never heard of this medication * Nichole Quan RN - 04/16/2025 2:16 PM EDT Pt is unable to obtain Prolia through buy and bill, unable to go to outside infusion or [facility] because of this Prolia through pharmacy benefits is $900 What are you thoughts about ordering Jubbonti for her documented in this encounter Plan of Treatment Upcoming Encounters Date Type Department Care Team (Late st Contact Info) Description 08/19/2025 2:00 PM EST Office Visit Internal Medicine - [place] [address] [phone] Alexia Ceron PA [address] [place] [address] 09/11/2025 2:15 PM EDT Office Visit Pulmonology - [place] [address] [phone] Lorrie Holland MD [address] [place] [address] 10/18/2025 1:[address] [facility] Infusion Center [address] [phone] documented as of this encounter Visit Diagnoses Not on filedocumented in this encounter Care Teams Senior Portfolio Manager Relationship Specialty Start Date End Date Alexia Ceron PA [address] [address] PCP - General Internal Medicine 05/29/18 documented as of this encounter
--- OUTSIDE RECORDS SUMMARY | 2025-04-23 11:18 | XMS_ITS | Encounter Summary ---
Author Organization [facility] Address [address] [place] [address] Care Team Providers Care Print Room Worker Name Role Phone Alexia Ceron Primary Care Provider + Encounter Details Date Type Department Care Team ([facility] Contact Info) Description 04/09/2025 Results Follow-Up [facility] [place] [address] [place] [address] Jdu Peñaloza PA [address] [place], [place] Social History Tobacco Use Types Packs/Day Years [...] 2:00 PM EST Office Visit Internal Medicine [facility] [address] [place] [address] Alexia Ceron PA [address] [place] [address] 09/11/2025 2:15 PM EDT Office Visit Pulmonology - [place] [address] [phone] Lorrie Holland MD [address] [place] [phone] 10/18/2025 1:30 PM EDT Appointment [facility] Infusion [facility] [address] [facility] [address] [place] [phone] documented as of this encounter Visit Diagnoses Not on filedocumented in this encounter Care Teams Print Room Worker Relationship Specialty Start Date End Date Alexia Ceron PA [address] [address] PCP - General Internal Medicine 05/29/18 documented as of this encounter
--- OUTSIDE RECORDS SUMMARY | 2025-04-23 11:18 | XMS_ITS | Clinical Summary ---
Author Organization [facility] Address [address] [place] [address] Phone Care Team Providers Care Plant Associate Name Role Phone Alexia Ceron Primary Care Provider + Allergies Active Allergy Reactions Criticality Noted Date Comments Calcitonin 02/16/2006 Doesn't remember what reaction she had Morphine Nausea And Vomiting 08/22/2007 Oxycodone-Acetaminophe n Nausea And Vomiting Low 08/22/2007 Medications meclizine (ANTIVERT) 12.5 mg tablet Take 1 tablet (12.5 mg total) by mouth 3 times daily as needed. 4 Active albuterol HFA (PROAIR HFA ; PROVENTIL HFA ; VENTOLIN HFA) 90 mcg/actuation inhaler Inhale 2 puffs by mouth every 6 (six) hours if needed for wheezing or shortness of breath. 3 Active umeclidinium-justina anteroL (Anoro Ellipta) 62.5-25 mcg/actuation inhaler Inhale 1 puff by mouth 1 (one) time each day. Active calcium carbonate-vit D3-min 600 mg-10 mcg (400 unit) tablet Take 1 tablet by mouth 2 (two) times a day. Active aspirin 81 mg EC tablet Take 1 tablet (81 mg total) by mouth daily. Active inhalat.spacing dev,large mask spacer Use with inhaler regularly 5 Active gabapentin (NEURONTIN) 300 mg capsule TAKE 1 CAPSULE BY MOUTH TWICE DAILY 180 capsule 3 4 Active methIMAzole (TAPAZOLE) 5 mg tablet TAKE ONE-HALF TABLET BY MOUTH DAILY 45 tablet 3 4 Active lisinopriL (PRINIVIL,ZESTRI L) 10 mg tablet TAKE 1 TABLET BY MOUTH DAILY 90 tablet 3 4 Active primidone (MYSOLINE) 50 mg tablet Take 1 tablet (50 mg total) by mouth at bedtime. 4 Active metoprolol succinate (TOPROL-XL) 25 mg 24 hr tablet TAKE 1 TABLET BY MOUTH DAILY 90 tablet 3 5 Active atorvastatin (LIPITOR) 40 mg tablet TAKE 1 TABLET BY MOUTH DAILY 90 tablet 3 5 Active fluocinonide (LIDEX) 0.05 % topical solution APPLY TOPICALLY TO THE AFFECTED AREA AT BEDTIME 5 Active dorzolamide (TRUSOPT) 2 % ophthalmic solution 4 Active ciclopirox (PENLAC) 8 % solution APPLY 1 APPLICATION TWICE DAILY TO TOENAILS AND FINGERNAILS 5 Active latanoprost 0.005 % drops, emulsion Administer 1 drop into affected eye(s). 0 Active denosumab (PROLIA) 60 mg/mL syringe syringeIndicatio ns:Osteoporosis without current pathological fracture, unspecified osteoporosis type Inject 1 mL (60 mg total) under the skin 1 (one) time for 1 dose. 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 COPD (chronic obstructive pu lmonary disease) with emphysema ([facility] V24, [facility] V28) 11/02/2017 Pulmonary nodules 11/02/2017 Overview (05/21/2024): Hx biopsy of pulmonary lesion 03/2014, benign. Tobacco use 11/02/2017 Glaucoma 11/01/2017 Overview (05/21/2024): Comments: right eye, opthalm Dr. Martinez Allergic rhinitis 11/01/2017 Subclinical hyperthyroidism 10/13/2017 Overview (05/21/2024): Comments: endo Dr. Hawkins Disc degeneration, lumbar 07/27/2017 Overview (05/21/2024): Comments: see DR Gabriel Reyna Chronic left-sided low back pain with left-sided sciatica 03/04/2017 Overview (05/21/2024): L w/ left-sided sciatica. Hyperlipidemia 05/16/2015 PVD (peripheral vascular disease) ([facility] V24) 08/23/2014 Overview (05/21/2024): h/o bilateral SFA stent by DR Tyson at [facility]: -02/28/18 s/p LLE balloon plasty prior SFA (superficial femoral artery) stent Dr. Driver at [facility] back OR for RLE coolness and no pulse found have total occlusion right SFA stent- this was ballooned but distal pulses remained absent - transfer [facility] had right TOOTH CUTTER CONTACT WHEEL/SFA endarterectomy with bovine patch angioplasty and RLE angiogram with right SFA scow captain/stenting utilizing 3 stents covering 16 cm - Dr. Jiménez Enchondroma of humerus, right 12/31/2011 Ulnar nerve neuropathy 09/10/2011 Overview (05/21/2024): Fer Hypertension 09/10/2011 Migraine 04/03/2010 Overview (05/21/2024): Fer Spinal stenosis of cervical region 03/26/2009 Meningioma ([facility] V24, [facility] V28) 08/22/2007 Overview (05/21/2024): [facility] 08/04; Fer-OV 10/03 Multinodular goiter 02/08/2006 Overview (05/21/2024): FNA 10/08: L=Benign, R-blood, rpt Osteoporosis 02/08/2006 Overview (05/21/2024): Prolia: 11/06/18; 05/09/19 (R) Prediabetes Encounters Date Type Department Care Team Description 04/19/2025 1:22 PM EDT - 04/19/2025 11:59 PM EDT Hospital Encounter [facility] [address] [place] [address] Age-related osteoporosis without current pathological fracture (Primary Dx) Discharge Disposition: Home or Self Care 04/18/2025 2:15 PM EDT Office Visit Internal Medicine [facility] [address] [place] [address] Alexia Ceron PA Primary hypertension (Primary Dx); Pure hypercholesterolemia ; Prediabetes; Hyperthyroidism; Age-related osteoporosis without current pathological fracture; Migraine without status migrainosus, not intractable, unspecified migraine type; Occipital neuralgia of left side 04/16/2025 Telephone Endocrinology - [address] [phone] Nichole Quan RN 04/09/2025 Results Follow-Up Endocrinology - [address] [phone] Jud Peñaloza PA 04/09/2025 Telephone Endocrinology - [address] [phone] Jud Peñaloza PA 04/08/2025 Telephone Endocrinology - [address] [phone] Nichole Quna RN 04/05/2025 Results Follow-Up Endocrinology - [address] [phone] Cyndie Gaines PA 03/13/2025 2:30 PM EDT Office Visit Pulmonology - [address] [phone] Lorrie Holland MD Chronic obstructive pulmonary disease, unspecified COPD type (CMS/HCC V24, CMS/HCC V28) 03/05/2025 Telephone Endocrinology [address] [phone] Cyndie Gaines PA 03/04/2025 Telephone Internal Medicine - [address] [phone] Alexia Ceron PA 01/29/2025 Telephone Endocrinology [address] [phone] Cyndie Gaines PA from Last 3 Months Immunizations Immunization Administration Dates Next Due H1N1 Inj Preservative Free 06/25/2009 Influenza trivalent, 0.5mL ( Fluad) 65yo and older 03/13/2019,04/10/2018 Influenza trivalent, 0.5mL ( Fluzone High-dose) 65yo and older 03/07/2017 Influenza trivalent, with pr eservative (Fluzone; Afluria) 6mo and older 04/16/2016,03/28/2015,04/19/2014,04/06,05/05/2012,04/09/2011,04/03/2010 ,03/26/2009,03/12/2008 Influenza, Unspecified 02/25/2021 Pfizer SARS-CoV-2 COVID-19, mRNA, LNP-S, preservative free 04/04/2021,07/25/2020 Pneumococcal conjugate 13 va lent (Prevnar 13, PCV13) 2mo and older 08/23/2014 Pneumococcal polysaccharide 23 valent (Pneumovax 23) 2yo and older 02/01/2007,07/28/1998 Td, Unspecified 03/26/2009,07/28/1998 Tdap Tetanus diptheria acell ular pertussis (Boostrix; Adacel) 7yo and older 07/13/2013 Zoster Live 04/28/2010 Surgical History Surgery Date Site/Laterality Comments COLONOSCOPY 07/11/07 PROCEDURE: HISTORICAL COLONOSCOPY; COMMENT: hemorrhoids; repeat in ten years FLEXIBLE SIGMOIDOSCOPY 07/29 PROCEDURE: CO SIGMOIDOSCOPY FLX DX W/COLLJ SPEC BR/WA IF PFRMD; COMMENT: neg OTHER SURGICAL HISTORY 08/04 PROCEDURE: OUTSIDE MRI/MRA; COMMENT: [facility]; Right frontal meningioma; MRA neg OTHER SURGICAL HISTORY PROCEDURE: CO LIG/TRNSXJ FLP TUBE ABDL/VAG APPR UNI/BI OTHER SURGICAL HISTORY Bilateral PROCEDURE: TRANSCATH STENT EACH ADDN VESSL,OPEN; COMMENT: legs ANGIOPLASTY 11/2018 Left PROCEDURE: HISTORICAL ANGIOPLASTY BACK SURGERY PROCEDURE: HISTORICAL BACK SURGERY EYE SURGERY Bilateral PROCEDURE: HISTORICAL EYE SURGERY; COMMENT: cataracts Dr. 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 Chronic low back pain 03/04/2017 DX:Chronic low back pain; COMMENT: L w/ left-sided sciatica. 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 Allergic rhinitis 11/01/2017 DX:Allergic rh initis Hyperlipidemia 05/16/2015 Prediabetes Family History Medical History Relation Name Comments Diabetes Aunt pat Other: Hypertension/Diabetes Brother 1 Diabetes Brother 2 Other: CHF/OK/STROKE Father Hypertension Mother Other: Diabetes/Parkinson's Mother Other cancer Other mat Great Aunts Hypertension Sister 1 Other: Multiple Sclerosis Sister 2 Prostate cancer Son 1 Other cancer Son 2 Lymphoma Breast cancer Neg Hx Colon cancer Neg Hx Ovarian cancer Neg Hx Relation Name Status Comments Aunt Brother 1 Brother 2 Father Mother Other Sister 1 Sister 2 Son 1 Son 2 Social History Tobacco Use Types Packs/Day Years Used Date Smoking Tobacco: Every Day Cigarettes 0.3 62.8 Started: 06/27/1962 Smokeless Tobacco: Never Tobacco Cessation:Ready to Q uit: Not Asked; Counseling Given: Not Answered Alcohol Use Standard Drinks/Week Comments No 0 [...] Orientation Straight 08/02/2024 1: 17 PM EST Obstetrics History Para Term AB IAB SAB Ectopic Multiple Livin g Live Births 2 2 2 2 Date Outcome GA Total Labor Labor/2nd/3rd Weight Sex Type Anes PTL Sammi A1 A5 Name Clin Term Term Last Filed Vital Signs Vital Sign Reading Time Taken Comments Blood Pressure 146/74 04/19/2025 1:57 PM EDT Pulse 50 04/19/2025 1:32 PM EDT Temperature 36.6 C (97.8 F) 04/19/2025 1:32 PM EDT Respiratory Rate 16 03/13/2025 2:32 PM EDT Oxygen Saturation 100% 04/19/2025 1:32 PM EDT Inhaled Oxygen Concentration - - Weight 49.9 kg (110 lb) 04/18/2025 2:29 PM EDT Height 162.6 cm (5' 4 ) 04/18/2025 2:29 PM EDT Body Mass Index 18.88 04/18/2025 2:29 PM EDT Plan of Treatment Upcoming Encounters Date Type Department Care Team (Late st Contact Info) Description 08/19/2025 2:00 PM EST Office Visit Internal Medicine - [place] [address] [phone] Alexia Ceron, PA [address] [place] [address] 09/11/2025 2:15 PM EDT Office Visit Pulmonology - [place] [address] [phone] Lorrie Holland MD [address] [place] [phone] 10/18/2025 1:30 PM EDT Appointment [facility] [address] [place] [phone] Health Maintenance Due Date Last Done Comments Zoster Vaccines (2 of 3) 06/23/2010 04/28/2010 Medicare Annual Wellness Visit 06/05/2022 Social Influencers of Health Screening 06/05/2022 DTaP,Tdap,and Td Vaccines (4 - Td or Tdap) 07/13/2023 07/13/2013, 03/26/2009, 07/28/1998 Depression Screening 06/27/2024 COVID-19 Vaccine ( season) 2025 06/30/2024, 03/17/2023, 03/19/2022, Additional history exists Hypertension/CHF/CAD Annual BMP Blood Test 04/09/2026 04/09/2025, 04/04/2025, 09/07/2024, Additional history exists Falls Risk Assessment 04/19/2026 04/19/2025 Cholesterol Screening (Lipid Panel) 12/27/2029 12/27/2024, 06/28/2024, 02/20/2024, Additional history exists Osteoporosis Screening (Bone Density Screening) 04/28/2033 04/28/2023, 04/24/2021, 04/16/2019, Additional history exists RSV Immunization Adult Patients Completed 06/14/2023 Pneumococcal Vaccine: 50+ Years Completed 02/17/2024, 08/23/2014, 02/01/2007, Additional history exists Influenza Vaccine Completed 02/21/2025, , 03/17/2023, Additional history exists HIB Vaccines Aged Out No longer eligi ble based on patient's age to complete this topic HPV Vaccines Aged Out No longer eligi ble based on patient's age to complete this topic Hepatitis A Vaccines Aged Out No long er eligible based on patient's age to complete this topic Hepatitis B Vaccines Aged Out No long er eligible based on patient's age to complete this topic IPV Vaccines Aged Out No longer eligi ble based on patient's age to complete this topic MMR Vaccines Aged Out No longer eligi ble based on patient's age to complete this topic Meningococcal ACWY Vaccine Aged Out N o longer eligible based on patient's age to complete this topic Meningococcal B Vaccine Aged Out No l onger eligible based on patient's age to complete this topic RSV Immunization Patients Under 20 months Aged Out No longer eligible based on patient's age to complete this topic Varicella Vaccines Aged Out No longer eligible based on patient's age to complete this topic Procedures Procedure Name Priority Date/Time Associated Diagnosis Comments CALCIUM, IONIZED Routine 04/09/2025 9:02 AM EDT Age-related osteoporosis without current pathological fracture ALBUMIN Routine 04/09/2025 9:02 AM EDT Age-related osteoporosis without current pathological fracture BASIC METABOLIC PANEL Routine 04/09/2025 9:02 AM EDT Age-related osteoporosis without current pathological fracture ALBUMIN Routine 04/04/2025 11:13 AM EDT Age-related osteoporosis without current pathological fracture CALCIUM Routine 04/04/2025 11:13 AM EDT Age-related osteoporosis without current pathological fracture CALCIUM, IONIZED Routine 04/04/2025 11:1 3 AM EDT Age-related osteoporosis without current pathological fracture CREATININE, SERUM Routine 04/04/2025 11:13 AM EDT Age-related osteoporosis without current pathological fracture LIPID PANEL WITH REFLEX TO DIRECT LDL Routine 06/28/2024 10:00 AM EST Pure hypercholesterolemia DXA BONE DENSITY STUDY 1+ SITS AXIAL SKEL Routine 04/28/2023 9:32 AM EDT Age-related osteoporosis without current pathological fracture from Last 3 Months or Most Recently Relevant to Health Maintenance Results * Calcium, ionized (04/09/2025 9:02 AM EDT) Only the most recent of2 resultswithin the time period is included. Calcium Ionized 5.3 4.6 - 5.4 mg/dL 04/11/2025 7:59 AM EDT [facility] Comment: Test performed at [facility], [address], [place] [address] Filomena Rosa MD, PhD - Lacing Operator Blood Venous blood specimen / Unknown Venipuncture / Unknown 04/09/2025 9:02 AM EDT 04/09/2025 9:02 AM EDT us Jud PATEL LAB BLOOD ORDERABLES Final Resul t [facility] [address] [place] [address] * Albumin (04/09/2025 9:02 AM EDT) Only the most recent of2 resultswithin the time period is included. Albumin 3.6 3.2 - 5.0 g/dL LAB CHEMISTRY METHOD 04/09/2025 2:46 PM EDT [facility] Blood Venous blood specimen / Unknown Venipuncture / Unknown 04/09/2025 9:02 AM EDT 04/09/2025 9:02 AM EDT us Jud PATEL LAB BLOOD ORDERABLES Final Resul t [facility] [address] [place] [address], [place] [phone] * Basic metabolic panel (04/09/2025 9:02 AM EDT) Sodium 138 133 - 145 mmol/L LAB CHEMISTRY METHOD 04/09/2025 2:46 PM [facility] Potassium 4.4 3.5 - 5.5 mmol/L LAB CHEMISTRY METHOD 04/09/2025 2:46 PM [facility] Chloride 103 96 - 110 mmol/L LAB CHEMISTRY METHOD 04/09/2025 2:46 PM [facility] CO2 30 21 - 32 mmol/L LAB CHEMISTRY METHOD 04/09/2025 2:46 PM [facility] Anion Gap 5 3 - 11 LAB CHEMISTRY METHOD 04/09/2025 2:46 PM [facility] Glucose 95 70 - 100 mg/dL LAB CHEMISTRY METHOD 04/09/2025 2:46 PM [facility] BUN 15 5 - 25 mg/dL LAB CHEMISTRY METHOD 04/09/2025 2:46 PM T [facility] Creatinine 0.92 0.50 - 1.10 mg/dL LAB CHEMISTRY METHOD 04/09/2025 2:46 PM [facility] eGFR 62 >=60 mL/min/1. 73m2 LAB CHEMISTRY METHOD 04/09/2025 2:46 PM [facility] Comment:Calculation based on the Chronic Kidney Disease Epidemiology Collaboration (CKD-EPI) equation refit without adjustment for race. BUN/Creatinine Ratio 16.3 LAB CHEMISTRY METHOD 04/09/2025 2:46 PM EDT [facility] Calcium 9.8 8.5 - 10.5 mg/dL LAB CHEMISTRY METHOD 04/09/2025 2:46 PM EDT [facility] Blood Venous blood specimen / Unknown Venipuncture / Unknown 04/09/2025 9:02 AM EDT 04/09/2025 9:02 AM EDT Jud PATEL LAB BLOOD ORDERABLES Final Resul t [facility] [address] [place] [address], * (ABNORMAL) Creatinine serum (04/04/2025 11:13 AM EDT) Creatinine 0.96 0.50 - 1.10 mg/dL LAB CHEMISTRY METHOD 04/04/2025 3:31 PM EDT [facility] eGFR 59(L) >=60 mL/min/1. 73m2 LAB CHEMISTRY METHOD 04/04/2025 3:31 PM EDT [facility] Comment:Calculation based on the Chronic Kidney Disease Epidemiology Collaboration (CKD-EPI) equation refit without adjustment for race. Blood Venous blood specimen / Unknown Venipuncture / Unknown 04/04/2025 11:13 AM EDT 04/04/2025 11:13 AM EDT Cyndie PATEL LAB BLOOD ORDERABLES Final Result [facility] [address] [place] [address], * Calcium (04/04/2025 11:13 AM EDT) Calcium 10.3 8.5 - 10.5 mg/dL LAB CHEMISTRY METHOD 04/04/2025 3:31 PM EDT [facility] Blood Venous blood specimen / Unknown Venipuncture / Unknown 04/04/2025 11:13 AM EDT 04/04/2025 11:13 AM EDT us Cyndie PATEL LAB BLOOD ORDERABLES Final Result Performing Organization Address City/[facility]/ZIP Co de Phone Number [facility] [address] [place] [address], [place] [phone] * Lipid panel with reflex to direct LDL (06/28/2024 10:00 AM EST) [facility] Cholesterol 136 0 - 200 mg/dL LAB CHEMISTRY METHOD 06/28/2024 3:04 PM EST [facility] Triglycerides 53 0 - 150 mg/dL LAB CHEMISTRY METHOD 06/28/2024 3:04 PM [facility] HDL 79 >=40 mg/dL LAB CHEMISTRY METHOD 06/28/2024 3:04 PM [facility] LDL Calculated 46 0 - 100 mg/dL LAB CHEMISTRY METHOD 06/28/2024 3:04 PM [facility] VLDL Cholesterol Hector 10.6 mg/dL LAB CHEMISTRY METHOD 06/28/2024 3:04 PM [facility] Non HDL Chol. (LDL+VLDL) 57 <145 mg/dL LAB CHEMISTRY METHOD 06/28/2024 3:04 PM [facility] Chol/HDL Ratio 1.7 0.0 - 4.4 LAB CHEMISTRY METHOD 06/28/2024 3:04 PM [facility] Blood Venous blood specimen / Unknown Venipuncture / Unknown 06/28/2024 10:00 AM EST 06/28/2024 10:00 AM EST us Angelo Driver DO LAB BLOOD ORDERABLES Final Re sult Performing Organization Address City/[facility]/ZIP Co de Phone Number [facility] [address] [place] [address], [place] [phone] * DXA BONE DENSITY STUDY 1+ YVROSE LALA SKEL (04/28/2023 9:32 AM EDT) Anatomical Region Laterality Modality Bone Densitometr y 01/20/2022 11:5 6 AM EDT Narrative 04/28/2023 5:34 PM EDT BONE DENSITY Lumbar Spine T-score is -3.6 (SD relative to 20-29 y/o adult) Z-score is -1.5 (SD relative to age matched peers) This is consistent with osteoporosis by criteria defined by the WHO. Left Hip T-score is -2.9 Z-score is -1.2 This is consistent with osteoporosis by criteria defined by the WHO. Comparison exam(s): significant increase in bone density of lumbar spine when compared to most recent bone density examination Confidence level is +/-95%. Impression: Based on the World Health Organization criteria, Elizabeth Long should be classified as having osteoporosis. [facility] Department of Internal Medicine recommends using National Osteoporosis Foundation (NOF) guidelines in treatment decisions related to osteoporosis. NOF guidelines suggest considering treatment for postmenopausal women and men aged 50 or older presenting with the following: History of hip or vertebral fracture. T-score less than or equal to -2.5 (DXA) at the femoral neck, total hip, or spine, after appropriate evaluation to exclude secondary causes. Low bone mass (T-score between -1.0 and -2.5 at the femoral neck or spine) AND a 10-year probability of a hip fracture greater than or equal to 3% OR a 10-year probability of a major osteoporosis-related fracture greater than or equal to 20% based on the [place]-adapted WHO algorithm Please note that all treatment decisions require clinical judgment and consideration of individual patient factors, including patient preferences, co-morbidities, previous drug use, risk factors not captured in the FRAX model (e.g., frailty, falls, vitamin D deficiency, increased bone turnover, interval significant decline in bone density) and possible under- or over-estimation of fracture risk by FRAX. Procedure Note Jaycee Rivera MD - 08/02/2023 BONE DENSITY Lumbar Spine T-score is -3.6 (SD relative to 20-29 y/o adult) Z-score is -1.5 (SD relative to age matched peers) This is consistent with osteoporosis by criteria defined by the WHO. Left Hip T-score is -2.9 Z-score is -1.2 This is consistent with osteoporosis by criteria defined by the WHO. Comparison exam(s): significant increase in bone density of lumbar spinewhen compared to most recent bone density examination Confidence level is +/-95%. Impression: Based on the World Health Organization criteria, Elizabeth Long should beclassified as having osteoporosis. [facility] Department of Internal Medicine recommendsusing National Osteoporosis Foundation (NOF) guidelines in treatmentdecisions related to osteoporosis. NOF guidelines suggest consideringtreatment for postmenopausal women and men aged 50 or older presentingwith the following: History of hip or vertebral fracture. T-score less than or equal to -2.5 (DXA) at the femoral neck, total hip,or spine, after appropriate evaluation to exclude secondary causes. Low bone mass (T-score between -1.0 and -2.5 at the femoral neck or spine)AND a 10-year probability of a hip fracture greater than or equal to 3% ORa 10-year probability of a major osteoporosis-related fracture greaterthan or equal to 20% based on the [place]-adapted WHO algorithm Please note that all treatment decisions require clinical judgment andconsideration of individual patient factors, including patientpreferences, co-morbidities, previous drug use, risk factors not capturedin the FRAX model (e.g., frailty, falls, vitamin D deficiency, increasedbone turnover, interval significant decline in bone density) and possibleunder- or over-estimation of fracture risk by FRAX. Cyndie PATLE IM DXA PROCEDURES Final Re sult from Last 3 Months or Most Recently Relevant to Health Maintenance Insurance [employer] Advance Directives * Full Code - Confirmed (Latest Code Status on File) Date Activated Date Inactivated Comments 08/02/2024 9:06 PM 08/03/2024 12:39 PM This code sta tus was ascertained in the following way: Code status discussion: discussion with patient To update the patient's code status, place a code status order. Do not modify or discontinue any currently active code status orders. * Full Code - Default Date Activated Date Inactivated Comments 08/02/2024 7:58 PM 08/02/2024 9:06 PM This is order is used when code status has not been discussed with the patient, or code status is otherwise unknown/unconfirmed To update the patient's code status, place a code status order. Do not modify or discontinue any currently active code status orders. Care Teams Plant Associate Relationship Specialty Start Date End Date Alexia Ceron PA [address] [place] [address] [address] [place] [address] PCP - General Internal Medicine 05/29/18
--- OUTSIDE RECORDS SUMMARY | 2025-04-23 11:18 | XMS_ITS | Clinical Summary ---
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 [...] Health Maintenance Due Date Last Done Comments Advance Care Planning 1940 DTaP/Tdap/Td Vaccines (1 - Tdap) 1960 Pneumococcal Vaccines 50+ (1 of 1 - PCV) 12/15/1991 Zoster (Shingles) Vaccine (1 of 2) 12/15/1991 DXA Bone Density (Females,Ag es 65 and older) 2006 RSV Vaccine 50 years and old er and Patients (1 - 1-dose 75+ series) 2016 Influenza Vaccine 01/25/2025 COVID-19 Vaccine (2023-2 5 season) 2025 Hepatitis B Vaccines Aged Out No long er eligible based on patient's age to complete this topic Medical Devices Implanted Type Area Shift Engineer Device Identifier Shelf Expiration Date Model / Serial / Lot Stent Vascular 6mm 100mm 125cm Otw Preld Delivery System - [id number] Implanted:Qty: 1 on 02/28/2018 by Todd Jiménez MD at [facility] [employer] [id number] 05/12/2019 [id number] / / [id number] Description:Superficial Femo ral Artery Stent Vascular 6mm 60mm 125cm Drug [place] Otw Delivery System - [id number] Implanted:Qty: 1 on 02/28/2018 by Todd Jiménez MD at [facility] [employer] [id number] 04/07/2019 [id number] / / [id number] Description:SFA Stent Vascular 6mm 40mm 125cm Drug [place] Otw Delivery System - [id number] Implanted:Qty: 1 on 02/28/2018 by Todd Jiménez MD at [facility] [employer]ent [employer] [id number] 03/21/2019 [id number] / / [id number] Description:SFA Patch Vascular 9x2cm Xenosure Bvn Pericard Glutaraldehyde - [id number] Implanted:Qty: 1 on 02/28/2018 by Todd Jiménez MD at [facility] Tissue [employer] [id number] 01/21/2023 [id number] / / [id number] Insurance [employer]IC[employer] Advance Directives * Full Code (Latest Code Status on File) Date Activated Date Inactivated Comments 02/28/2018 9:42 PM * Full Code Date Activated Date Inactivated Comments 02/28/2018 4:30 PM 02/28/2018 9:42 PM Care Teams Guitar Instructor Relationship Specialty Start Date End Date Jaylen Sweeney MD [address] [place] [id number] PCP - General Internal Medicine 02/28/18
--- OUTSIDE RECORDS SUMMARY | 2025-04-23 11:18 | XMS_ITS ---
Author Name [facility] Organization Unknown Care Team Organization Name Specialty Phone Email Start Date End Da te [facility] 02/13/2025 [facility] CARMINE CURRY Primary Care 05/04/2022 02/13/20 24
== END 2025-04-23 10:23 | disposition home or self-care (01) ==
LOC: HO.HSMS 09:44
PROVIDERS: PCP Physician Assistant; Visit Provider Psychiatry & Neurology Neurology
DX: G24.3 Spasmodic torticollis (principal)
CPT/HCPCS: 64616; 99499

== ENCOUNTER → 2025-04-23 09:43 | Outpatient (BNVA) | payer OTHER, SELFPAY | PROVIDERS: PCP Physician Assistant; Visit Provider Psychiatry & Neurology Neurology | DX: G24.3 Spasmodic torticollis (principal) | CPT/HCPCS: 64616; J0585 ==